=== PATIENT | male | born 1985 | race Caucasian/White ===

== ENCOUNTER 2017-02-12 13:30 | Emergency (ER) | payer BC ==
[~2017-02-12] VITALS: Ht 177.8 cm; Wt 90.0 kg
[~2017-02-12 13:30] MED LIST: TRAM-10 PO
[2017-02-12 13:35] VITALS: TEMP 36.8; Ht 177.8 cm; Wt 90.0 kg
[2017-02-12] MEDS ORDERED: PROPARACAINE HCL 0.5% OP SOLN 15 ML BTL OP STA (13:49)
--- NOTE | 2017-02-12 13:55 | EMERGENCY ROOM VISIT NOTE ---
ED Visit Note First contact with patient: 13:44 CHIEF COMPLAINT: Eye pain HISTORY OF PRESENT ILLNESS: This 31-year-old male patient presents to the emergency department ambulatory complaining of pain in the right eye since yesterday. The patient states that yesterday he was working under his vehicle. He states that he was wearing safety glasses but he thinks that a piece of either rust or wood fell between his safety glasses and into his eye. There has been a constant moderate pain and irritation, redness and tearing in the eye. There is a mild blurring of vision at times and light bothers the eye. The vision has not been decreased over all. The patient does not wear contacts. The patient rates the pain as irritating and 0/10. The patient has had previous injuries to this eye. REVIEW OF SYSTEMS: A 6 system review of systems was completed with positives and pertinent negatives listed in the HPI. ALLERGIES: No known drug allergies MEDICATIONS: None PMH: None SOCIAL HISTORY: The patient lives locally PHYSICAL EXAM: Vital Signs: Reviewed Nurse's notes, vital signs stable. GENERAL: This is a 31-year-old male, in no acute distress, but who is uncomfortable from the eye problem. Well-developed well-nourished. EYES: The pupils are equal round and reactive to light and accommodation. EOMs are full and without tenderness. There is discharge of clear tears from the right eye which is injected. There is no foreign body visible under the eyelid even after lid eversion. Funduscopic exam reveals no hemorrhages, papilledema, or other abnormalities. No foreign body was seen embedded in the cornea under slit lamp exam. The cornea was clear and no hyphema was seen. With magnification, I could see small black microscopic particles in the medial canthus. There are also similar particles over the skin in the brow. The small specks in the eye were easily removed with a cotton swab. EMERGENCY DEPARTMENT COURSE: I examined the patient. Alcaine 2 drops were placed in the patient's right eye. A slit lamp exam was performed as above. There were a few microscopic specks in the patient's eye which were removed. There were additional ones on the skin. Adrian lens irrigation was performed. Ciloxan two drops was placed in the patient's right eye. He should return to the ER with any worsening symptoms. Otherwise, he should recheck with his family doctor or ophthalmology in 24-48 hours. The patient was discharged home in good condition. Current/Historical Medications No Active Prescriptions or Reported Meds Allergies Coded Allergies: No Known Allergies (Verified , 12/15/15) Vital Signs Date Time Temp Pulse Resp B/P (MAP) Pulse Ox O2 Delivery O2 Flow Rate FiO2 02/12/17 15:17 78 18 116/78 96 02/12/17 13:35 36.8 71 15 114/70 99 Room Air Medications Administered Medications (Trade) Dose Ordered Sig/Lissette Route Start Time Stop Time Status Last Admin Dose Admin Ciprofloxacin HCl (Ciprofloxacin 0.3% Op Soln) 2 drops NOW ONCE OP 02/12/17 15:00 02/12/17 15:01 DC 02/12/17 15:14 2 DROPS Departure Information Impression Primary Impression: Eye foreign body Dispostion Home / Self-Care Condition GOOD Prescriptions No Active Prescriptions or Reported Meds Referrals No Doctor, Assigned (PCP) Jefry Schmitt D.O. Patient Instructions ED Eye Injury Corneal Abrasion, [facility] Additional Instructions Ciloxan drops every 6 hours while awake for the next 5 days Return to the ER with any worsening symptoms Otherwise, recheck with ophthalmology or your family doctor in 24-48 hours Problem Qualifiers Primary Impression: Eye foreign body Encounter type: initial encounter Laterality: right Qualified Codes: T15.91XA - Foreign body on external eye, part unspecified, right eye, initial encounter
[2017-02-12] MEDS ORDERED: CIPROFLOXACIN HCL 0.3% OP SOLN 2.5 ML BTL OP ONE (15:00)
[2017-02-12 15:17] VITALS: BP 116/78; PULSE 78; O2SAT 96
== END 2017-02-12 15:20 | disposition home or self-care (01) ==
LOC: C.EDB 13:32 → C.EDD 15:20
DX: T15.91XA Foreign body on external eye, part unspecified, right eye, initial encounter (principal); X58.XXXA Exposure to other specified factors, initial encounter